=== PATIENT | female | born 1995 | race Two or more races ===

== ENCOUNTER → 2025-04-03 | Outpatient (CLI) | payer MEDICAID, SELFPAY ==
--- NOTE | 2025-04-03 16:34 | XR_ITS ---
Examination: Complete OB ultrasound greater than 14 weeks Date and time of exam: April 03, 2025 1433 hours INDICATIONS: No Doppler cardiac tones on examination today Findings: Viable intrauterine single fetus with single amniotic sac presentation breech Cardiac motion 158 BPM Placenta anterior grade 1 Umbilical cord insertion seen Amniotic fluid adequate Cervix 4.9 cm Bilateral BE obscured by bowel gas Left ovary 3.5 cm arterial flow. Composite estimated gestational age based on BPD, head circumference, abdominal circumference, femur length is 19 weeks 0 days, estimated weight 249 g. Survey of intracranial anatomy, spinal anatomy, abdominal anatomy, four-chamber heart performed with no abnormalities identified. Impression: Viable intrauterine gestation breech presentation Estimated gestational age 19 weeks 0 days.
== END | disposition home or self-care (01) ==
PROVIDERS: PCP Obstetrics & Gynecology; Referring Provider Obstetrics & Gynecology; Visit Provider Obstetrics & Gynecology
DX: O36.8120 Decreased fetal movements, second trimester, not applicable or unspecified (principal); O32.1XX0 Maternal care for breech presentation, not applicable or unspecified; Z3A.19 19 weeks gestation of pregnancy
CPT/HCPCS: 76805

== ENCOUNTER 2025-08-26 13:24 | Inpatient (IN) | payer MEDICAID, SELFPAY ==
[2025-08-26] VITALS (55 sets, daily range): BP systolic 100–146; BP diastolic 53–70; PULSE 63–96; RESP 16–98; TEMP 36.7–36.8; O2SAT 87–100; BMI 37.2
[2025-08-26 13:58] LABS: ROM Kit Exp Date# 4/11/28; ROM Kit Lot # 58106258; Swb Mxed in Solvent 1 min? Yes
[2025-08-26 14:00] LABS: ROM Swab Mixed By: SAUCT; Rupture of Fetal Membranes Positive (Negative)
--- NOTE | 2025-08-26 14:05 | ESHP_ITS ---
Documentation for date of: 08/26/25 OB Labor/Induct. HPI History of Present Illness Chief complaint: leakage of fluid : 4 Para: 3 Term pregnancies: 3 pregnancies: 0 Living children: 3 History of Abortions: Spontaneous and Elective: 0 History of Vaginal deliveries: 3 History of sections: No History of : No MERCEDES: 08/28/25 Gestational Age (weeks): 39 Gestational Age (days): 5 History of present illness: Patient presents for loss of fluid, clear, that occurred at 0900. Feeling ctx, 4/10 discomfort. No vaginal bleeding. Normal movement. No fevers/chills. History of Present Dating criteria: based on 2nd trimester US only (dates changed since 10d difference from lmp) Adequate Care: No (late to care) Abnormal ultrasound findings: Examination: Complete OB ultrasound greater than 14 weeks Date and time of exam: April 03, 2025 1433 hours INDICATIONS: No Doppler cardiac tones on examination today Findings: Viable intrauterine single fetus with single amniotic sac presentation breech Cardiac motion 158 BPM Placenta anterior grade 1 Umbilical cord insertion seen Amniotic fluid adequate Cervix 4.9 cm Bilateral BE obscured by bowel gas Left ovary 3.5 cm arterial flow. Composite estimated gestational age based on BPD, head circumference, abdominal circumference, femur length is 19 weeks 0 days, estimated weight 249 g. Survey of intracranial anatomy, spinal anatomy, abdominal anatomy, four-chamber heart performed with no abnormalities identified. Impression: Viable intrauterine gestation breech presentation Estimated gestational age 19 weeks 0 days. Narrative: -3: Uncomplicated x3 (2 were in [place]), proven to [id number] G4: current Current BMI 37 Failed 1hr glucola but passed 3hr GTT Late to care PNC with Dr. Martinez Labs Maternal Blood Type: O Pos Labs: Positive: Rubella Titre and Negative: RPR, Hepatitis B, HIV and Group Beta Strep Narrative: 1hr 145 3hr GTT 82/148/137/105 NIPT negative, XY Review of Systems Review of Systems Narrative Review of Systems: Review of Systems Systems Reviewed: All systems reviewed, normal except as documented Constitutional Constitutional: Denies body ache(s), Denies chills, Denies fever(s) and Denies headache(s) ENT Ears, Nose, Mouth, and Throat: Denies headache(s) and Denies vertigo Cardiovascular Cardiovascular: Denies chest pain, Denies palpitations, Denies dyspnea and Denies syncope Respiratory Respiratory: Denies cough, Denies dyspnea Gastrointestinal Gastrointestinal: Denies nausea and Denies vomiting Neurologic Neurologic: Denies convulsions, Denies headache(s), Denies other visual disturbances, Denies syncope and Denies vertigo Past Medical History Family History OTHER FAMILY HX: non-contributory Surgical History SURGICAL: Negative Section Social History SOCIAL: No tobacco/ETOH/illicit drug use Past Medical History Comments PMH COMMENT: Current BMI 37 Meds Home Medications and Allergies Home Medications ?Medication ?Instructions ?Recorded ?Confirmed ?Type vits no.130-ferrous fum 1 tab PO QDAY 2 08/26/25 History 27 mg iron-folic acid 800 mcg tablet ( Vitamin) Allergies Allergy/AdvReac Type Severity Reaction Status Date / Time No Known Allergies Allergy Verified 08/26/25 13:31 OB Exam Physical Exam Vital signs: Temp Pulse Resp BP 98.0 F 87 18 113/59 L 08/26/25 13:41 08/26/25 13:50 08/26/25 13:41 08/26/25 13:50 Narrative: General: well developed, well nourished, no acute distress, conversant Cardiac: normal heart rate Lungs: breathing without distress Abdomen: soft, gravid, non-tender, no rebound or guarding Extremities: no pain with palpation of calves Detailed Labor and Delivery Exam Dilation (cm): 1-2 Effacement (%): 60 Cervix position: mid station: -2 Consistency: soft Presentation: Vertex Membranes: ruptured Amniotic fluid: clear (yellow) Baseline heart rate: 130 monitor accelerations: 15x15 monitor decelerations: None software verification engineer variability: Moderate (11-25) Contraction frequency (min): q3min OB Assessment & Plan Assessment and Plan (1) PROM (premature rupture of membranes): Status: Acute Assessment and plan: Hattie is a 30yo with SIUP at 39&5wk presenting with PROM at 0900, clear/yellow. AmniSure positive. Regular/painful contractions, SCE: 1-2/60/-2. Ctx q3min. Vitals wnl, benign exam. Reassuring assessment. PMhx/ complicated by: Current BMI 37 Failed 1hr glucola but passed 3hr GTT Late to care PNC with Dr. Martinez Plan: -Admit to L&D -Establish IV, routine labs -CEFM -OB ultrasound for EFW -Clear liquid diet -Engagement Engineer/consent re: , augmentation -Cytotec 50mcg PO Q4hr if ctx pattern allows -GBS status: negative -Anticipate -Safe to proceed (2) 39 weeks gestation of : Status: Acute (3) Obesity affecting in third trimester: Status: Acute (1) PROM (premature rupture of membranes) Qualifiers: PROM onset of labor timing: unspecified duration between rupture of membranes and onset of labor PROM gestational age: full term Qualified Code(s): O42.92 - Full-term premature rupture of membranes, unspecified as to length of time between rupture and onset of labor (3) Obesity affecting in third trimester Qualifiers: Obesity type affecting : unspecified obesity Qualified Code(s): O99.213 - Obesity complicating , third trimester
--- NOTE | 2025-08-26 14:16 | XR_ITS ---
Examination: Complete OB ultrasound greater than 14 weeks Date and time of exam: August 26, 2025, 1515 hours INDICATIONS: Late to care, leaking amniotic fluid beginning yesterday Findings: Viable intrauterine single fetus with single amniotic sac presentation cephalic spine anterior Cardiac motion 155 bpm Placenta anterior grade 3 Umbilical cord insertion seen Amniotic fluid index 7.3 cm Ovaries obscured by bowel gas. Composite estimated gestational age based on BPD, head circumference, abdominal circumference, femur length is 33 weeks 6 days Estimated weight 2271 g. Survey of intracranial anatomy, spinal anatomy, abdominal anatomy, four-chamber heart performed with no abnormalities identified. Impression: Viable intrauterine gestation in cephalic presentation.
[2025-08-26 15:21] LABS: Basophils # (Auto) 0.1 Thou/mm3 (0.0-0.2); Basophils % (Auto) 1 % (0-2.5); Eosinophils # (Auto) 0.1 Thou/mm3 (0.0-0.5); Eosinophils % (Auto) 1 % (0-10); Hematocrit 35.2 % (36.0-46.0); Hemoglobin 12.2 g/dL (12.0-16.0); Immature Granulocytes Auto 0.04 Thou/mm3 (0.00-0.00); Lymphocytes # (Auto) 1.6 Thou/mm3 (1.0-4.8); Lymphocytes % (Auto) 16 % (10-50); Mean Corpuscular HGB Conc 34.7 g/dl (31.0-37.0); Mean Corpuscular Hemoglobin 30.0 pg (25.0-35.0); Mean Corpuscular Volume 87 fL (80-100); Monocytes # (Auto) 0.8 Thou/mm3 (0.0-0.8); Monocytes % (Auto) 8 % (0-12); Neutrophils # (Auto) 7.1 Thou/mm3 (1.8-7.7); Neutrophils % (Auto) 74 % (37-80); Nucleated Red Blood Cell # 0.00 Thou/mm3 (0.00-0.00); Nucleated Red Blood Cell % 0 /100 WBC (0); Platelet Count 291 Thou/mm3 (140-440); RDW Standard Deviation 41.4 fL (36.4-46.3); Red Blood Count 4.07 Miln/mm3 (4.00-5.20); White Blood Count 9.7 Thou/mm3 (3.6-11.0)
[2025-08-26 16:06] LABS: Syphilis Nonreactive (Nonreactive)
[2025-08-26 17:03] LABS: Amphetamine/Metham Scrn,Ur OB Negative (Negative); Benzoylecgonine Screen, Ur OB Negative (Negative); Opiate Screen,Urine OB Negative (Negative); THC Screen,Urine OB Negative (Negative)
[2025-08-26] MEDS: fentaNYL CIT INJ 50 mCg/ML AMP 2ML 100 MCG IVP (22:30)
[2025-08-26] MEDS: RINGERS LACTATED 1000 ML 1,000 ML 100 ML IV ×2 (22:34→23:01)
[2025-08-27] VITALS (73 sets, daily range): BP systolic 107–150; BP diastolic 54–74; PULSE 59–91; RESP 14–16; TEMP 36.6–37.7; O2SAT 89–100
[2025-08-27] MEDS: METHYLERGONOVINE INJ 0.2 MG/ML VIAL IM (03:23)
--- NOTE | 2025-08-27 03:24 | OBDSUM_ITS ---
Data (Lua) Data Hx Section: No : 4 Term: 3 : 0 Livin Abortions: Spontaneous & Theraputic: 0 Delivery Data (Lua) Labor Data Initiation of labor: Augmentation Induction/Augmentation Agent: Cytotec-PO ROM date: 08/26/25 ROM time: 09:00 Amniotic membrane rupture type: Spontaneous Amniotic fluid description: Clear Delivery Data Onset of labor date: 08/27/25 Onset of labor time: 00:00 Complete dilation date: 08/27/25 Complete dilation time: 02:52 delivery date: 08/27/25 delivery time: 03:12 Placenta delivery date: 08/27/25 Placenta delivery time: 03:16 Stage 1 total time: Labor - Stage 1 Duration 2 hours and 52 minutes Delivered by: Billie Navarro Delivery nurse: jaxson Musaorn nurse: nina marie Road Monkey at delivery: No Support person(s) at delivery: father of baby Other staff at delivery: johanny gayle rnc Delivery Method Delivery method: Normal Vaginal Delivery Presentation: Vertex Anesthesia Type Anesthesia Type: Epidural Placenta Placenta delivery description: Spontaneous Cord blood sent to lab: Yes cord blood collection: Cord Blood Type Episiotomy Episiotomy description: None EBL Estimated blood loss (ml): 200 Umbilical Cord cord description: 3 Vessels Additional Procedures Hattie is a 30yo [id number] s/p uncomplicated at 39&5wk after presenting with PROM, delivering at 0312 on 08/27/2025. On presentation, SCE was 1cm with +AmniSure. She progressed with cytotec a ugmentation to C/C/0 at which point she began pushing. She received an epidural. With good maternal pushing efforts, infant's head delivered OA and restituted ALDEN. Left anterior shoulder delivered easily followed by posterior shoulder and corpus. Infant had spontaneous cry and was vigorous. Apgars 9/9. placed on maternal abdomen where nose/mouth were suctioned and dried/stimulated. After approximately 1 minute, cord was clamped x2 and cut by FOB. Cord blood collected for typing. With fundal massage and cord traction, placenta delivered spontaneously and intact with 3 vessel centrally inserted cord. Bimanual massage performed and IV pitocin given per protocol with fundus then firm at u-2cm and hemostasis noted. Inspection of perineum and vagina revealed no lacerations. Small trickle of blood, so sweep just within cervix/GIAN performed which retrieved a very small amount of clot. 0.2mg IM methergine given for prophylaxis against future bleeding. All counts correct x2. Mom and were doing well when I left the room. Billie Navarro MD Complications Complications: none [place] Data (Lua) Data order: 1 [place]'s gender: Male weight (gms): 3000 g Weight (pounds): 6 lbs and 9.8 ozs 1 minute: 9 5 minutes: 9
[2025-08-27] MEDS: ONDANSETRON INJ 2 MG/ML INJ 2 ML 4 MG IVP (03:33)
[2025-08-27] MEDS: IBUPROFEN TAB 400 MG TABLET 800 MG PO ×2 (03:35→14:23)
[2025-08-27] MEDS: OXYTOCIN in NS 20 units 20 UNIT/1,000 ML BAG 125 UNIT IV (03:41)
[2025-08-27] MEDS: ACETAMINOPHEN 325 MG TABLET 650 MG PO (08:14)
[2025-08-27] MEDS: INFLUENZA VIRUS QUADRIVALENT 0.5 ML SYRINGE IMi (08:15)
[2025-08-27] MEDS: DOCUSATE SOD 100 MG CAPSULE PO ×2 (08:15→20:23)
[2025-08-27 09:55] LABS: Basophils # (Auto) 0.0 Thou/mm3 (0.0-0.2); Basophils % (Auto) 0 % (0-2.5); Eosinophils # (Auto) 0.0 Thou/mm3 (0.0-0.5); Eosinophils % (Auto) 0 % (0-10); Hematocrit 30.8 % (36.0-46.0); Hemoglobin 10.6 g/dL (12.0-16.0); Immature Granulocytes Auto 0.05 Thou/mm3 (0.00-0.00); Lymphocytes # (Auto) 0.9 Thou/mm3 (1.0-4.8); Lymphocytes % (Auto) 6 % (10-50); Mean Corpuscular HGB Conc 34.4 g/dl (31.0-37.0); Mean Corpuscular Hemoglobin 29.5 pg (25.0-35.0); Mean Corpuscular Volume 86 fL (80-100); Monocytes # (Auto) 1.1 Thou/mm3 (0.0-0.8); Monocytes % (Auto) 8 % (0-12); Neutrophils # (Auto) 12.5 Thou/mm3 (1.8-7.7); Neutrophils % (Auto) 85 % (37-80); Nucleated Red Blood Cell # 0.00 Thou/mm3 (0.00-0.00); Nucleated Red Blood Cell % 0 /100 WBC (0); Platelet Count 214 Thou/mm3 (140-440); RDW Standard Deviation 41.0 fL (36.4-46.3); Red Blood Count 3.59 Miln/mm3 (4.00-5.20); White Blood Count 14.7 Thou/mm3 (3.6-11.0)
--- NOTE | 2025-08-27 11:43 | PC.SS ---
ELECTROLESS PLATER conducted bedside contact with the patient to address nursing referral indicating patient was late to care at 19 weeks.? ELECTROLESS PLATER utilized excel expert to assist with discussion.? ELECTROLESS PLATER introduced self and role.? ELECTROLESS PLATER reviewed basis of referral.? Patient confirmed late to care due to inability to OB appointment at [facility].? [facility] informed patient that they were not accepting any new patients.? Patient then contacted insurance carrier to identify accepting clinics.? [facility] Patient obtained OB appointment with Dr. Harmon after 12 week timeline.? Patient reports consistency with OB appointments.? , Zana; is the patient?s 4th child.? Infant delivered naturally.? Patient plans on the infant.? Patient?s other children are ages 12, 11 and 3.? Patient is receiving WIC, SNAP and TANF.? Patient denies history of alcohol/drug abuse.? Patient denies CWS intervention.? Patient denies episodes of domestic violence.? Patient denies possessing a history of mental health, reports no current possession of depression or anxiety.? Patient has access to adequate amount of supplies and equipment; to include a car seat.? FOB, [employer] [place]; will provide transportation upon discharge.? Patient describes possessing support system consisting of FOB and extended family.? ELECTROLESS PLATER provided the patient with community resources to include [employer] and Warm Line.? No further intervention required at this time, social media marketer will be available to address any further concerns.? ELECTROLESS PLATER updated bedside nurse.?
[2025-08-28 03:30] VITALS: BP 122/78; PULSE 77; RESP 18; TEMP 36.6
[2025-08-28 08:00] VITALS: BP 119/77; PULSE 78; RESP 18; TEMP 36.5; O2SAT 97
[2025-08-28] MEDS: DOCUSATE SOD 100 MG CAPSULE PO (08:07)
[2025-08-28] MEDS: IBUPROFEN TAB 400 MG TABLET 800 MG PO (08:07)
--- NOTE | 2025-08-28 11:27 | PD.LDDS ---
DS: Providers Provider Date of admission: 08/26/25 14:13 Primary care physician: Physician No Primary/Family Admitting Provider: Billie Navarro MD Attending Provider on Admission: Billie Navarro MD Consults: 08/27/25 03:22 Referral Routine Comment: Attending Provider on DC: Billie Navarro MD Discharging Provider: Billie Navarro MD DS: Diagnosis Discharge Diagnosis (1) care and examination: Status: Acute (2) Obesity affecting in third trimester: Status: Acute (3) 39 weeks gestation of : Status: Acute (4) PROM (premature rupture of membranes): Status: Acute Problem List Completed Was Problem List Reviewed/Reconciled?: Yes Summary/Hosp Course Brief History: Patient presents for loss of fluid, clear, that occurred at 0900. Feeling ctx, 4/10 discomfort. No vaginal bleeding. Normal movement. No fevers/chills. -- Hattie is a 30yo [id number] s/p uncomplicated at 39&5wk after presenting with PROM, delivering at 0312 on 08/27/2025. Doing well on PPD 1. She has had an uncomplicated course, meeting all milestones and feels ready for discharge home. She is ambulating without lightheadedness, tolerating regular diet no n/v, spontaneously voiding without issue. She has no chest pain or shortness of breath. No fevers or chills. Minimal, appropriate discomfort. Vitals normal, benign exam. Hemodynamically stable with no evidence of infection. PP Hgb 10.6 from 12.2. Peripartum Data Delivery Method: Normal Vaginal Delivery Episiotomy Description: None Status at Discharge Functional status at discharge: independent ambulation Overall status at discharge: patient is back to baseline Time Spent with Patient Time attestation: Total time spent providing and/or coordinating discharge services: Exam Vital Signs Temp Pulse Resp BP Pulse Ox O2 Del Method 97.7 F 78 18 119/77 97 Room Air 08/28/25 08:00 08/28/25 08:00 08/28/25 08:00 08/28/25 08:00 08/28/25 08:00 08/28/25 08:00 Narrative Exam General: well developed, well nourished, no acute distress, conversant Cardiac: normal heart rate Lungs: breathing without distress Abdomen: soft, post-gravid, non-tender, no rebound or guarding, Fundus firm at u-3cm. Extremities: no pain with palpation of calves, trace edema of BLE Discharge Plan Plan Patient Disposition: HOME (Self Care) Patient condition on transfer: Stable Prescriptions/Referrals Prescriptions/Med Rec: New docusate sodium 100 mg Capsule 100 mg PO BID 10 Days Qty: 20 0RF ibuprofen 800 mg tablet 800 mg PO Q8H PRN (Reason: See Comments) 10 Days Qty: 20 0RF Continued Vitamin 27 mg iron- 800 mcg Tablet 1 tab PO QDAY Referrals: No Primary/Family,Physician [Primary Care Provider] Patient/Caregiver Discharge Instructions Discharge Activity: activity as tolerated and other Other Discharge Activity Instructions:: vaginal rest and no heavy lifting more than 10 pounds for 6 weeks Other Discharge Diet Instructions: regular diet Education Materials: After a Vaginal , Understanding Blues, Nutrition While Print Language: Kazakh Activity Restrictions/Additional Instructions: follow up with Dr. Martinez in 4 to 6 weeks, call office to schedule appointment Stand Alone Forms: Lori Award Info., Patient Portal Info Letter Discharge Order Discharge Orders: Discharge (Routine); Ordered 08/28/25 Ordered By: Billie Navarro Planned Discharge Date 08/28/25 (2) Obesity affecting in third trimester Qualifiers: Obesity type affecting : unspecified obesity Qualified Code(s): O99.213 - Obesity complicating , third trimester (4) PROM (premature rupture of membranes) Qualifiers: PROM onset of labor timing: unspecified duration between rupture of membranes and onset of labor PROM gestational age: full term Qualified Code(s): O42.92 - Full-term premature rupture of membranes, unspecified as to length of time between rupture and onset of labor
== END 2025-08-28 15:50 | disposition home or self-care (01) | DRG 560 ==
LOC: S4SX 08-27 03:32 → S4NX 08-27 05:28
PROVIDERS: Admitting Provider Obstetrics & Gynecology; Visit Provider Obstetrics & Gynecology
DX: O42.02 Full-term premature rupture of membranes, onset of labor within 24 hours of rupture (principal); O99.213 Obesity complicating pregnancy, third trimester; Z3A.39 39 weeks gestation of pregnancy; Z37.0 Single live birth; Z23 Encounter for immunization
CPT/HCPCS: 36415; 59025; 59409; 76805; 80307; 84112; 85025; 86780; 86850; 86900; 86901; 90686; 94762; J2210; J2405; J2590; J2795; J3010; J7120; A9270; J9060